=== PATIENT | female | born 1955 | race Hispanic/Latino ===

== ENCOUNTER 2023-03-27 08:55 | Emergency (ER) | payer OTHER ==
--- OUTSIDE RECORDS SUMMARY | 2023-03-27 08:58 | XMS REPORT | Continuity of Care Document ---
:[address] [facility] t Address [address] [facility] [address] [place] [id number] Care Team Providers Name Role Phone Light_R Attending Clinician Unavailable Gerry Patel Attending Clinician [phone] Dl Parikh Attending Clinician [phone] Light_R Admitting Clinician Unavailable Payers Payer Name Policy Type Policy Number Effective Date Expiration Date S [facility] [id number] 2021 (MEDICARE 00:00:00 REPLACEMENT/ADVANTA GE - [place]) [place] [id number] 2016 (PPO) 00:00:00 Problems Condition Condition Condition Status Onset Resolution Last Treating Co mments Source Name Details Category Date Date Treatment Clinician Date Hypertensi Hypertensi Problem [place] ve 1-19 [facility] disorder Disorder 00:00: Urolog y 00 Neurogenic Neurogenic Problem [place] dysfunctio Dysfunctio 07-03 [facility] n of the n of the 00:00: Urolog y urinary Urinary 00 bladder Bladder Urinary Urinary Problem Active [place] tract Tract 9-04 [facility] infectious Infectious 00:00: Ur ology disease Disease 00 Clinical Clinical Problem Active 2012-10 [place] on finding Finding 0-17 [facility] 00:00: Urology 00 Allergies, Adverse Reactions, Alerts This patient has no known allergies or adverse reactions. Social History Smoking Status Start Date Stop Date Source Never Smoker [place] [facility] Ur [facility]y Medications Ordered Filled Start Stop Current Ordering Indication Dosage Frequency Signature Comments Components Source Medication Medication Date Date Medication? Clinician (SIG) Name Name betamethaso betamethaso No betamethas [place] one [facility] dipropionat dipropionat dipropiona Urology e 0.05 % e 0.05 % te 0.05 % topical topical topical ointment ointment ointment cephalexin cephalexin No cephalexin [place] 500 mg 500 mg 500 mg [facility] capsule capsule capsule Urolog y cyclobenzap cyclobenzap No cyclobenza [place] rine 10 mg rine 10 mg landry 10 [facility] tablet tablet mg tablet Urolog y doxycycline doxycycline No doxycyclin [place] hyclate 100 hyclate 100 e hyclate [facility] mg capsule mg capsule 100 mg U rology capsule [place] [facility] 2017-2019 Urology (PF) 180 (PF) 180 (PF) 180 mcg (45 mcg mcg (45 mcg mcg (45 x 4)/0.5 mL x 4)/0.5 mL mcg x IM syringe IM syringe 4)/0.5 mL IM syringe ibuprofen ibuprofen No ibuprofen [place] 800 mg 800 mg 800 mg [facility] tablet tablet tablet Urology Prescriptio Prescriptio No Prescripti [place] n - Change n - Change on - Met ro Change Urology Prescriptio [facility] - Renewal on - M etro Renewal Urology [facility] azole 800 xazole 800 [facility] mg-trimetho mg-trimetho mg-trimeth Urology prim 160 mg prim 160 mg oprim 160 tablet tablet mg tablet valsartan valsartan No [facility] 160 160 160 [facility] mg-hydrochl mg-hydrochl mg-hydroch Urology orothiazide orothiazide lorothiazi 12.5 mg 12.5 mg de 12.5 mg tablet tablet tablet valsartan valsartan No [facility] 320 320 [facility] mg-hydrochl mg-hydrochl mg-hydroch Urology orothiazide orothiazide lorothiazi 12.5 mg 12.5 mg de 12.5 mg tablet tablet tablet betamethaso betamethaso No betamethas [place] ne ne one [facility] dipropionat dipropionat dipropiona Urology e 0.05 % e 0.05 % te 0.05 % topical topical topical ointment ointment ointment cephalexin cephalexin No cephalexin [place] 500 mg 500 mg 500 mg [facility] capsule capsule capsule Urolog y doxycycline doxycycline No doxycyclin [place] hyclate 100 hyclate 100 e hyclate [facility] mg capsule mg capsule 100 mg U rology capsule Flublok Flublok No Flublok [facility] n Quad Quad Quad [facility] 2017-2018 Urology (PF) 180 (PF) 180 (PF) 180 mcg (45 mcg mcg (45 mcg mcg (45 x 4)/0.5 mL x 4)/0.5 mL mcg x IM syringe IM syringe 4)/0.5 mL IM syringe ibuprofen ibuprofen No ibuprofen [place] 800 mg 800 mg 800 mg [facility] tablet tablet tablet Urology Prescriptio Prescriptio No Prescripti [place] n - Renewal n - Renewal on - M etro Renewal Urology sulfamethox sulfamethox No sulfametho [place] azole 800 azole 800 xazole 800 [facility] mg-trimetho mg-trimetho mg-trimeth Urology prim 160 mg prim 160 mg oprim 160 tablet tablet mg tablet valsartan valsartan No [facility] 160 160 160 [facility] mg-hydrochl mg-hydrochl mg-hydroch Urology orothiazide orothiazide lorothiazi 12.5 mg 12.5 mg de 12.5 mg tablet tablet tablet valsartan valsartan No valsartan [place] 320 320 320 [facility] mg-hydrochl mg-hydrochl mg-hydroch Urology orothiazide orothiazide lorothiazi 12.5 mg 12.5 mg de 12.5 mg tablet tablet tablet betamethaso betamethaso No betamethas [place] ne ne one [facility] dipropionat dipropionat dipropiona Urology e 0.05 % e 0.05 % te 0.05 % topical topical topical ointment ointment ointment cephalexin cephalexin No cephalexin [place] 500 mg 500 mg 500 mg [facility] capsule capsule capsule Urolog y doxycycline doxycycline No doxycyclin [place] hyclate 100 hyclate 100 e hyclate [facility] mg capsule mg capsule 100 mg U rology capsule Flublok Flublok No Flublok [facility] n Quad Quad Quad [facility] 2017-2018 Urology (PF) 180 (PF) 180 (PF) 180 mcg (45 mcg mcg (45 mcg mcg (45 x 4)/0.5 mL x 4)/0.5 mL mcg x IM syringe IM syringe 4)/0.5 mL IM syringe ibuprofen ibuprofen No ibuprofen [place] 800 mg 800 mg 800 mg [facility] tablet tablet tablet Urology Prescriptio Prescriptio No Prescripti [place] n - Change n - Change on - Met ro Change Urology Prescriptio Prescriptio No Prescripti [place] n - Renewal n - Renewal on - M etro Renewal Urology sulfamethox sulfamethox No sulfametho [place] azole 800 azole 800 xazole 800 [facility] mg-trimetho mg-trimetho mg-trimeth Urology prim 160 mg prim 160 mg oprim 160 tablet tablet mg tablet valsartan valsartan No [facility] 160 160 160 [facility] mg-hydrochl mg-hydrochl mg-hydroch Urology orothiazide orothiazide lorothiazi 12.5 mg 12.5 mg de 12.5 mg tablet tablet tablet valsartan valsartan No [facility] 320 320 320 [facility] mg-hydrochl mg-hydrochl mg-hydroch Urology orothiazide orothiazide lorothiazi 12.5 mg 12.5 mg de 12.5 mg tablet tablet tablet betamethaso betamethaso No betamethas [place] ne ne one [facility] dipropionat dipropionat dipropiona Urology e 0.05 % e 0.05 % te 0.05 % topical topical topical ointment ointment ointment cephalexin cephalexin No cephalexin [place] 500 mg 500 mg 500 mg [facility] capsule capsule capsule Urolog y doxycycline doxycycline No doxycyclin [place] hyclate 100 hyclate 100 e hyclate [facility] mg capsule mg capsule 100 mg U rology capsule [place] Quad [facility] [id number] Urology (PF) 180 (PF) 180 (PF) 180 mcg (45 mcg mcg (45 mcg mcg (45 x 4)/0.5 mL x 4)/0.5 mL mcg x IM syringe IM syringe 4)/0.5 mL IM syringe ibuprofen ibuprofen No ibuprofen [place] 800 mg 800 mg 800 mg [facility] tablet tablet tablet Urology Prescriptio Prescriptio No Prescripti [place] n - Change n - Change on - Met ro Change Urology Prescriptio Prescriptio No Prescripti [place] n - Renewal n - Renewal on - M etro Renewal Urology sulfamethox sulfamethox No sulfametho [place] azole 800 azole 800 xazole 800 [facility] mg-trimetho mg-trimetho mg-trimeth Urology prim 160 mg prim 160 mg oprim 160 tablet tablet mg tablet valsartan valsartan No valsartan [place] 160 160 160 [facility] mg-hydrochl mg-hydrochl mg-hydroch Urology orothiazide orothiazide lorothiazi 12.5 mg 12.5 mg de 12.5 mg tablet tablet tablet valsartan valsartan No valsartan [place] 320 320 320 [facility] mg-hydrochl mg-hydrochl mg-hydroch Urology orothiazide orothiazide lorothiazi 12.5 mg 12.5 mg de 12.5 mg tablet tablet tablet Immunizations Ordered Immunization Filled Immunization Date Status Commen ts Source Name Name influenza, influenza, 2019-07-16 Completed [facility] injectable, injectable, 00:00:00 Urology quadrivalent quadrivalent influenza, influenza, 2019-07-16 Completed [facility] injectable, injectable, 00:00:00 Urology quadrivalent quadrivalent influenza, influenza, 2019-07-16 Completed [facility] injectable, injectable, 00:00:00 Urology quadrivalent quadrivalent influenza, influenza, 2019-07-16 Completed [facility] injectable, injectable, 00:00:00 Urology quadrivalent quadrivalent Vital Signs Vital Name Observation Time Observation Value Comments Source BP Diastolic 2022-11-14 00:00:00 78 mm[Hg] [facility] Urology Height 2022-11-14 00:00:00 62 [in_i] [facility] Urolog BMI (Body Mass 2022-11-14 00:00:00 31.5 kg/m2 [facility] Index) Urology BP Systolic 2022-11-14 00:00:00 150 mm[Hg] [facility] Urology Body Weight 2022-11-14 00:00:00 172 [lb_av] [facility] Urology BP Systolic 2022-05-10 00:00:00 132 mm[Hg] [facility] Urology Body Weight 2022-05-10 00:00:00 191 [lb_av] [facility] Urology BP Diastolic 2022-05-10 00:00:00 82 [facility] Height 2022-05-10 00:00:00 62 [in_i[facility] BMI (Body Mass 2022-05-10 00:00:00 34.9 kg/m2 [place] [facility] Index) Urology Height 2021-12-20 00:00:00 62 [in_i] [facility] BMI (Body Mass 2021-12-20 00:00:00 34.9 kg/m2 [place] [facility] Index) Urology Body Weight 2021-12-20 00:00:00 191 [lb_av[facility] BP Diastolic 2021-06-23 00:00:00 80 mm[Hg[facility] Height 2021-06-23 00:00:00 62 [in_i] [facility] BMI (Body Mass 2021-06-23 00:00:00 34.9 kg/m2 [place] [facility] Index) Urology BP Systolic 2021-06-23 00:00:00 140 mm[Hg[facility] Body Weight 2021-06-23 00:00:00 191 [lb_av] [facility] Procedures This patient has no known procedures. Plan of Care Planned Activity Planned Date Details Comments Source Diagnostic Test 2022-11-14 urinalysis, Acu[place] Jm o Pending 00:00:00 dipstick [code = Urology urinalysis, dipstick] Encounters Start End Encounter Admission Attending Care Care Encounter Source Date/Time Date/Time Type Type Clinicians Facility Department ID 2022-11-14 2022-11-14 Outpatient Light_R U [facility] [id number]- [place] 00:00:00 00:00:00 [id number] [facility] 2022-11-14 2022-11-14 Gerry [facility] [place] - [id number] Ary gramajo 00:00:00 00:00:00 Bryce Patel MD: [facility] [address], [place] [address] , Ph. 2022-11-12 2022-11-12 Outpatient Light_R HMU [facility] [id number]- [place] 00:00:00 00:00:00 [id number] [facility] 2022-05-16 2022-05-16 Outpatient Light_R HMU HMU [id number]- [place] 12:09:00 12:09:00 [id number] [facility] 2022-05-16 2022-05-16 Outpatient Light_R HMU HMU [id number]- [place] 00:00:00 00:00:00 [id number] [facility] 2022-05-11 2022-05-11 Outpatient Light_R HMU HMU [id number]- [place] 09:54:00 09:54:00 [id number] [facility] 2022-05-10 2022-05-10 Outpatient Light_R HMU HMU [id number]- [place] 03:10:00 03:10:00 [id number] [facility] 2022-05-10 2022-05-10 [facility] [place] [id number]:00 Bryce Patel MD: [facility] [address] [address] , Ph. 2022-05-10 2022-05-10 Outpatient Mineo, HMU HMU [id number] 00:00:00 00:00:00 Gerry [id number] Bryce [id number] 2021-12-20 2021-12-20 Outpatient Light_R HMU HMU [id number]- [place] 12:13:00 12:13:00 [facility] 2021-12-20 2021-12-20 Outpatient Light, HMU HMU [id number] 00:00:00 00:00:00 Dl Mckeon [id number] 2021-12-20 2021-12-20 D[place] [facility] [id number] [facility] 00:00:00 Mike Parikh MD: [facility] [address] [address] , Ph. 2021-11-23 2021-11-23 Outpatient Light_R HMU HMU [id number]- [place] 03:36:00 03:36:00 [facility] 2021-09-09 2021-09-09 Outpatient Light_R [facility] [id number]- [place] 01:16:00 01:16:00 [id number] [facility] 2021-08-05 2021-08-05 Outpatient Light_R [facility] [id number]- [place] 02:16:00 02:16:00 [id number] [facility] 2021-07-01 2021-07-01 Outpatient Light_R [facility] [id number]- [place] 01:55:00 01:55:00 [id number] [facility] 2021-06-23 2021-06-23 Outpatient Light_R HM[facility] [id number]- [place] 11:46:00 11:46:00 [id number] [facility] 2021-06-23 2021-06-23 Outpatient Light, HMU [id number] 00:00:00 00:00:00 Dl Mckeon [id number] 2021-06-23 2021-06-23 Dl [facility] [place] - [id number] [facility] 00:00:00 00:00:00 Mike Parikh MD: [facility] [address] [address] , Ph. 2021-05-25 2021-05-25 Outpatient Light_R HMU [facility] [id number]- [place] 01:00:00 01:00:[facility] [id number] [facility] Test Description Test Time Test Comments Results Result Comments Source Urinalysis macro (dipstick) panel - Urine 2022-05-10 14:46:0 0 Test Item Value Reference Range Interpretation Comme nts leukocytes (test code = negative neg leukocytes) urobilinogen (test code = 0.2 E.U./dL sm amt (.5-1mg/dL) urobilinogen) protein (test code = negative See_Comment [Autom ated message] protein) The system [employer] generated this result transmitted ref erence range: <=150 mg /d. The reference range was not used to interpr et this result as normal/abnormal . pH (test code = pH) 7.0 4.5-8 blood (test code = blood) negative See_Comment [ Automated message] The system [employer] generated this result transmitted ref erence range: <=3 RBC. The reference range was not used to interpr et this result as normal/abnormal . specific gravity (test 1.015 1.005-1.025 code = specific gravity) ketone (test code = negative none ketone) bilirubin (test code = negative neg bilirubin) glucose (test code = negative See_Comment [Autom ated message] glucose) The system [employer] generated this result transmitted ref erence range: <=130 mg /d. The reference range was not used to interpr et this result as normal/abnormal . color (test code = color) light yellow yellow clarity (test code = slightly cloudy clear or cloudy clarity) nitrite (test code = positive neg A nitrite) [facility] Urologyurinalysis, [id number] 11:04:37 Test Item Value Reference Range Interpretation Comments Result: (test code = Result:) bacteruria [facility] Urology
--- NOTE | 2023-03-27 09:13 | ER ---
Nurse's Notes [facility] Name: Vicki Smith Age: 67 yrs Sex: Female : 1955 Arrival Date: 03/27/2023 Time: 08:55 Bed Waiting Private MD: Cam Last Diagnosis: Low back pain Presentation: 03/27 09:10 Chief complaint: Patient states: Right lower back pain, radiates to right leg, x4 days. jl7 Coronavirus screen: At this time, the client does not indicate any symptoms associated with coronavirus-19. Ebola Screen: No symptoms or risks identified at this time. Initial Sepsis Screen: Does the patient meet any 2 criteria? No. Patient's initial sepsis screen is negative. Does the patient have a suspected source of infection? No. Patient's initial sepsis screen is negative. Risk Assessment: Do you want to hurt yourself or someone else? Patient reports no desire to harm self or others. Onset of symptoms was March 24, 2023. 09:10 Method Of Arrival: Ambulatory jl 09:10 Acuity: ERNIE 4 jl7 Triage Assessment: 09:11 General: Appears in no apparent distress. uncomfortable, Behavior is calm, cooperative, jl7 appropriate for age. Pain: Complains of pain in right low back Pain radiates to right leg Pain currently is 7 out of 10 on a pain scale. Musculoskeletal: Swelling absent. Historical: - Allergies: 09:11 Codeine; jl7 - Home Meds: 09:11 valsartan-hydrochlorothiazide oral [Active]; jl7 - PMHx: 09:11 Hypertensive disorder; breast cancer; jl7 - PSHx: 09:11 bilateral mastectomy; jl7 - Immunization history:: Adult Immunizations unknown. - Social history:: Smoking status: Patient denies any tobacco usage or history of. Vital Signs: 09:10 BP 153 / 76; Pulse 71; Resp 17; Temp 97.4; Pulse Ox 100% ; Weight 76.2 kg; Height 5 ft. jl7 1 in. ; Pain 7; 09:10 Body Mass Index 31.74 (76.20 kg, 154.94 cm) jl7 09:10 Pain Scale: Adult jl7 ED Course: 08:57 Patient arrived in ED. mr 08:57 Cam Last MD is Private Physician. mr 08:58 Clifton Segovia MD is Attending Physician. bs3 09:11 Triage completed. jl7 09:11 Arm band placed on right wrist. jl7 09:12 Cam Last MD is Referral Physician. bs3 09:13 Mandy Verma, RN is Primary Nurse. jl7 09:22 No provider procedures requiring assistance completed. Patient did not have IV access jl7 during this emergency room visit. Administered Medications: 09:21 Drug: Methocarbamol PO 500 mg Route: PO; jl7 09:22 Follow up: Response: Medication administered at discharge. jl7 09:22 Drug: Ketorolac IM 30 mg Route: IM; Site: right deltoid; jl7 09:22 Follow up: Response: Medication administered at discharge. jl7 Outcome: 09:12 Discharge ordered by . bs3 09:22 Discharged to home ambulatory. jl7 09:22 Condition: stable 09:22 Discharge instructions given to patient, Instructed on discharge instructions, follow up and referral plans. medication usage, Demonstrated understanding of instructions, follow-up care, medications, Prescriptions given X 2. 09:23 Patient left the ED. jl7 Signatures: Osbaldo Rosario mr Mandy Verma, RN RN jl7 Clifton Segovia MD MD bs3 Corrections: (The following items were deleted from the chart) 09:13 09:11 Allergies: No Known Allergies; jl7 jl7
--- NOTE | 2023-03-27 09:13 | EDPHYS ---
Physician Documentation [facility] Name: Vicki Smith Age: 67 yrs Sex: Female : 1955 Arrival Date: 03/27/2023 Time: 08:55 Bed Waiting Private MD: Cam Last ED Physician Clifton Segovia HPI: 03/27 09:08 This 67 yrs old Female presents to ER via Unassigned with complaints of Back bs3 Pain, Leg Pain. 09:08 59-year-old female history of breast cancer status postsurgery and cancer for for 15 bs3 years she self catheters her bladder unclear etiology being followed by urology presents with back pain radiating to her right leg that started on Monday that started after sitting on the bleachers for 4 hours for graduation denies any associated fevers chills numbness tingling or weakness any saddle anesthesia any urinary or bowel incontinence she tried cyclobenzaprine but it made her mouth dry and came in because of her symptoms to get checked out, denies falls or new trauma. Historical: - Allergies: 09:11 Codeine; jl7 - Home Meds: 09:11 valsartan-hydrochlorothiazide oral [Active]; jl7 - PMHx: 09:11 Hypertensive disorder; breast cancer; jl7 - PSHx: 09:11 bilateral mastectomy; jl7 - Immunization history:: Adult Immunizations unknown. - Social history:: Smoking status: Patient denies any tobacco usage or history of. ROS: 09:08 Constitutional: Negative for fever, chills bs3 09:08 All other systems are negative. Exam: 09:08 Constitutional: This is a well developed, well nourished patient who is awake, alert, bs3 and in no acute distress. Head/Face: Normocephalic, atraumatic. Eyes: Pupils equal round and reactive to light, extra-ocular motions intact. Lids and lashes normal. ENT: mmm, no posterior phyarngeal erythema Neck: Trachea midline, no thyromegaly, no neck stiffness Chest/axilla: Normal chest wall appearance and motion. Nontender with no deformity. No lesions are appreciated. Cardiovascular: Regular rate and rhythm with a normal S1 and S2. symmetric pulses in upper extremities Respiratory: Lungs have equal breath sounds bilaterally, clear to auscultation, no respiratory distress Abdomen/GI: Soft, non-tender, no rebound or guarding Back: No spinal tenderness. No costovertebral tenderness. Full range of motion. No pain to percussion over her spine, no saddle anesthesia Skin: Warm, dry with normal turgor. Normal color with no rashes, no lesions, and no evidence of cellulitis. MS/ Extremity: Pulses equal, no cyanosis. Neurovascular intact. Full, normal range of motion. Full strength in lower extremities b/l, she has pain with straight leg raise on the right, she has good symmetric reflexes at patella Neuro: Awake and alert, GCS 15, oriented to person, place, time, and situation. Cranial nerves II-XII grossly intact. Motor strength 5/5 in all extremities. Sensory grossly intact. Psych: Awake, alert, with orientation to person, place and time. Behavior, mood, and affect are within normal limits. Vital Signs: 09:10 BP 153 / 76; Pulse 71; Resp 17; Temp 97.4; Pulse Ox 100% ; Weight 76.2 kg; Height 5 ft. jl7 1 in. ; Pain 05/08; 09:10 Body Mass Index 31.74 (76.20 kg, 154.94 cm) jl7 09:10 Pain Scale: Adult jl7 MDM: 08:58 Patient medically screened. bs3 09:08 Differential diagnosis: Patient with likely musculoskeletal back pain possible sciatica bs3 although she feels like her pain is a pulling sensation rather than sharp pain she has chronic urinary retention which is unchanged it is not consistent with a new red flag she has a former history of cancer about 15 years ago and is cancer free I considered spinal epidural abscess however she she is negative for fevers or chills I considered cauda equina but she has no new concerning features we will treat pain and advised follow-up with primary care Dr. Last within 72 hours advised imaging if persistent symptoms or new symptoms we discussed red flag return precautions. Data reviewed: vital signs, nurses notes. Administered Medications: : Drug: Methocarbamol PO 500 mg Route: PO; 7 09:22 Follow up: Response: Medication administered at discharge. jl7 09:22 Drug: Ketorolac IM 30 mg Route: IM; Site: right deltoid; jl7 09:22 Follow up: Response: Medication administered at discharge. jl7 Disposition Summary: 03/27/23 09:12 Discharge Ordered Location: Home bs3 Problem: new bs3 Symptoms: have improved bs3 Condition: Stable bs3 Diagnosis - Low back pain bs3 Followup: bs3 - With: Cam Last MD - When: 2 - 3 days - Reason: Re-evaluation by your physician Discharge Instructions: - Discharge Summary Sheet bs3 - Acute Back Pain, Adult bs3 - Sciatica bs3 - Heat Therapy bs3 Forms: - Medication Reconciliation Form bs3 - Thank You Letter bs3 - Antibiotic Education bs3 - Prescription Opioid Use bs3 Prescriptions: - meloxicam 15 mg Oral tablet - take 1 tablet by ORAL route once; 10 tablet; Refills: 0, Product Selection bs3 Permitted - tizanidine 2 mg Oral tablet - take 1 tablet by ORAL route every 6 to 8 hours as needed for muscle spasticity; bs3 do not exceed 3 doses per 24 hrs; 15 tablet; Refills: 0, Product Selection Permitted Signatures: Mandy Verma RN RN jl7 Clifton Segovia MD MD bs3 Corrections: (The following items were deleted from the chart) 09:13 09:11 Allergies: No Known Allergies; jl7 jl7
[2023-03-27] MEDS ORDERED: KETOROLAC 30 MG/ML INJ ONE (09:24)
[2023-03-27] MEDS ORDERED: methocarbamoL 500 MG TAB ONE (09:24)
[2023-03-27 09:47] VITALS: BP 153/76; TEMP 97.4; O2SAT 100
== END 2023-03-27 09:23 | disposition home or self-care (01) ==
LOC: ER 08:55
DX: M54.50 Low back pain, unspecified (principal); I10 Essential (primary) hypertension; Z88.5 Allergy status to narcotic agent; Z85.3 Personal history of malignant neoplasm of breast; Z90.13 Acquired absence of bilateral breasts and nipples
CPT/HCPCS: 96372; 99284